=== PATIENT | male | born 1985 | race Caucasian/White ===

== ENCOUNTER 2023-09-18 12:31 | Emergency (ER) | payer OTHER, SELFPAY ==
[2023-09-18 12:34] VITALS: BP 135/80
--- NOTE | 2023-09-18 13:29 | ED.GENMED ---
History of Present Illness
General
Chief Complaint: Musculo-Skeletal Complaint
Source: patient
Time Seen by Provider: 09/18/23 13:20
Travel History
Have you had any contact with someone who has COVID-19?: No
Do you have any symptoms of coronavirus? Fever > 100 degrees, chills, cough, shortness of breath, sore throat, loss of taste or smell, muscle aches, or headache?: No
History of Present Illness
History of Present Illness:
38-year-old male with no significant past medical history presenting the emergency department for evaluation of right knee pain that he states he woke up with today after he had an accidental trip and fall last night while drinking. Patient states
he feels a cracking/popping sensation when attempting to range of motion the right knee. Patient notes that about 4 5 years ago he injured the same knee but did not have any surgery. No other injuries or concerns.
Past History
Past History
ED Past Medical History: Psychiatric (Anxiety, )
ED Past Surgical History: Orthopedic (Left bicep repair)
Social History
Tobacco: Smoker
Alcohol: Occasional
Drug: None
Personal: Single
Living: with family
Employment: Employed
Review of Systems
Review of Systems
All Other Systems: ROS reviewed and negative except as documented in HPI and ROS
Phy Exam
Physical Exam
Physical Exam:
GENERAL: Alert , in no apparent distress
EYE: conjunctiva clear
Head: Normocephalic atraumatic
NECK: Supple,
ENT: mmm.
LUNGS: no acute respiratory distress
NEUROLOGICAL: Alert and oriented
SKIN: Warm and dry, skin intact.
MUSCULOSKELETAL: Right knee: Soft tissue swelling without any joint effusion. Range of motion is somewhat limited with flexion and extension secondary to pain. Patient states pain is worse when trying to fully extend the knee. No overlying
erythema or breaks in the skin. Remainder of extremity is warm and well-perfused and neurovascularly intact.
PSYCH: Normal and appropriate interaction.
Scores
Heart Failure Risk
Heart Failure Risk Score: Not Applicable
Heart Score for Chest Pain Patients
STEMI patient?: Not applicable
Withdrawal Assessment of Alcohol
Withdrawal Assessment Completed?: Not applicable
Course
Orders/Labs/Results
Orders:
Orders
09/18/23 12:36
Knee, Right 4 or More Views [CR Knee- Right 4 Or More View*] Urgent
Comment:
Reason For Exam: fall/pain
09/18/23 13:28
Crutches-Treatment ONCE
Knee Immobilizer Right-Treatme ONCE
Vital Signs
Initial and Last Documented VS:
Initial Vital Signs
Temp Pulse Resp BP Pulse Ox
98.3 F 92 17 135/80 95
09/18/23 12:34 09/18/23 12:34 09/18/23 12:34 09/18/23 12:34 09/18/23 12:34
Last Documented Vital Signs
Temp Pulse Resp BP Pulse Ox
98.3 F 92 17 135/80 95
09/18/23 12:34 09/18/23 12:34 09/18/23 12:34 09/18/23 12:34 09/18/23 12:34
MDM/Problems Addressed
Differential Diagnosis Includes:
Contusion, ligamentous injury, meniscus injury, fracture
MDM/Problems Addressed:
38-year-old male presenting to the emergency department for evaluation of right knee pain following an accidental fall yesterday evening. X-ray was ordered from triage and ultimately shows no acute fracture.
However will place patient in a knee immobilizer with concern for potential of ligamentous injury or meniscal injury. Crutches to be used as well. NSAIDs/Tylenol as needed for pain. RICE recommendations discussed. Patient stable for discharge
home and outpatient follow-up with orthopedics as needed.
*Radiology
Radiology exam reviewed: preliminary read by ED provider (No acute fracture)
*Pulse Oximetry
Patient hypoxic: no
*Critical Care Note
Total Time (30-74mins, 75-104mins- exclusive of procedures): Not Applicable
ED Attending Note
-
Portions of this chart may have been created with voice recognition software.� Occasional wrong word or��sound alike� substitutions may have occurred due to the inherent limitations of voice recognition software.
Discharge Plan
Departure
Patient Disposition: Home (Routine Discharge)
Date of Disposition: 09/18/23
Time of Disposition: 13:29
Patient with high blood pressure during this ER visit?: No
Discharge Problem:
Right knee pain
Instructions: Knee Pain (DC)
Prescriptions:
No Action
acetaminophen [Tylenol Extra Strength] 500 mg Tablet
1,000 mg PO PRN PRN (Reason: pain)
Referrals:
Ac Oliver MD [Active] - (Orthopedist - Call for appointment)
Interventions
Interventions:
*Risk Screen - Suicide Last Done: 09/18/23 12:33
*General Assessment Last Done: 09/18/23 12:33
*Neglect/Abuse Screening Last Done: 09/18/23 12:33
ED- Fall Risk Assessment Last Done: 09/18/23 14:11
*ED COVID-19 Vaccine History Last Done: 09/18/23 12:33
*Nursing Disposition Last Done: 09/18/23 14:15
ED-Musculoskeletal Assessment Last Done: 09/18/23 14:11
Discharge Date and Time
Discharge Date/Time: 09/18/23 14:16
Print Language: MALAY
== END 2023-09-18 14:16 | disposition home or self-care (01) ==
LOC: EMR 12:31
PROVIDERS: EMERGENCY PHYSICIAN Emergency Medicine; FAMILY PHYSICIAN Internal Medicine
DX: M25.561 Pain in right knee (principal); W01.0XXA Fall on same level from slipping, tripping and stumbling without subsequent striking against object, initial encounter; F41.9 Anxiety disorder, unspecified; F17.200 Nicotine dependence, unspecified, uncomplicated
CPT/HCPCS: 99283; 73564

== ENCOUNTER → 2023-10-21 06:44 | Outpatient (REF) | payer OTHER, SELFPAY | LOC: MRI 3T 06:44 | PROVIDERS: ATTENDING PHYSICIAN Physician Assistant; FAMILY PHYSICIAN Internal Medicine | DX: M25.561 Pain in right knee (principal) | CPT/HCPCS: 73721 ==

== ENCOUNTER 2024-06-01 02:19 | Emergency (ER) | payer OTHER, SELFPAY ==
[2024-06-01 02:22] VITALS: BP 164/102
[2024-06-01 03:42] VITALS: BP 152/94
[2024-06-01 05:41] VITALS: BP 141/89
[2024-06-01 06:00] VITALS: BP 119/71
--- NOTE | 2024-06-01 06:58 | ED.GENMED ---
History of Present Illness
General
Chief Complaint: Blood Pressure Problem
Source: patient
Time Seen by Provider: 06/01/24 06:45
History of Present Illness
History of Present Illness:
39-year-old male presents to the emergency room concerned about an elevated blood pressure. Patient states he has been under a lot of stress and working a lot recently. He worked from 7 AM yesterday morning until late at night returning around
midnight. When he was trying to fall asleep he felt as if he was having an adrenaline pettit or anxiety. He took his blood pressure and noted it was elevated in the 140 systolic range. He measured it repeatedly with each measurement being higher
than the previous. This caused him to be quite upset prompting his visit to the emergency room. He denies having any chest pain. He denies any sense of rapid heart rate or palpitations. The machine that measured his blood pressure also measured
his heart rate to be in the 60s. He does not have a history of anxiety. He denies any inqi-cba-htgienl medication like cold remedies etc. He does occasionally take melatonin. He denies any recreational drug use or alcohol use. Currently he
feels back to normal.
Past History
Past History
ED Past Medical History: Psychiatric (Anxiety, )
ED Past Surgical History: Orthopedic (Left bicep repair)
Social History
Tobacco: Smoker
Alcohol: Occasional
Drug: None
Personal: Single
Living: with family
Employment: Employed
Phy Exam
Physical Exam
Physical Exam:
General: Awake, Alert, Oriented X3. No acute distress.
Vitals: unremarkable
Head: Atraumatic
Eyes: Pupils equal, EOMI
Throat: Airway intact, no exudates
Neck: Trachea midline
Lungs: Clear and equal b/l
Heart: Regular rate, no murmurs
Abd: Soft, Nontender, No pulsatile mass
Neuro: Nonfocal
Skin: Warm, dry, no rash
Extremities: pulses equal b/l, no edema
Course
Vital Signs
Initial and Last Documented VS:
Initial Vital Signs
Temp Pulse Resp BP Pulse Ox
98.2 F 84 16 164/102 99
06/01/24 02:22 06/01/24 02:22 06/01/24 02:22 06/01/24 02:22 06/01/24 02:22
Last Documented Vital Signs
Temp Pulse Resp BP Pulse Ox
98.2 F 50 18 115/77 99
06/01/24 02:22 06/01/24 07:06 06/01/24 07:06 06/01/24 07:06 06/01/24 07:06
MDM/Problems Addressed
Differential Diagnosis Includes:
Hypertension, anxiety
MDM/Problems Addressed:
Patient had elevated blood pressures at home. The more he measured his blood pressure the higher went. He admits to feeling quite anxious about the situation. Physical exam appears benign. Blood pressure is normal. There is no physical exam
findings to suggest an unstable process. Recommend follow-up with his primary care provider.
*Pulse Oximetry
Patient hypoxic: no
*Critical Care Note
Total Time (30-74mins, 75-104mins- exclusive of procedures): Not Applicable
ED Attending Note
-
Portions of this chart may have been created with voice recognition software.� Occasional wrong word or��sound alike� substitutions may have occurred due to the inherent limitations of voice recognition software.
Discharge Plan
Departure
Patient Disposition: Home (Routine Discharge)
Date of Disposition: 06/01/24
Time of Disposition: 06:59
Patient with high blood pressure during this ER visit?: Yes
Discharge Problem:
Elevated blood pressure reading
Instructions: BLOOD PRESSURE
Prescriptions:
No Action
acetaminophen [Tylenol Extra Strength] 500 mg Tablet
1,000 mg PO PRN PRN (Reason: pain)
melatonin 1 mg Tablet
1 mg PO HS PRN (Reason: insomnia)
Referrals:
Chekov,Gilles V., MD [Family Provider] -
Activity Restrictions/Additional Instructions:
Follow-up with your primary care doctor. Return for any chest pain or shortness of breath.
Interventions
Interventions:
*Risk Screen - Suicide Last Done: 06/01/24 02:22
*General Assessment Last Done: 06/01/24 05:42
*Neglect/Abuse Screening Last Done: 06/01/24 05:42
ED- Fall Risk Assessment Last Done: 06/01/24 05:47
*ED COVID-19 Vaccine History Last Done: 06/01/24 05:42
*Nursing Disposition Last Done: 06/01/24 07:06
ED- Cardiac Assessment Last Done: 06/01/24 05:47
ED- Neurological Assessment Last Done: 06/01/24 05:47
ED- Pulmonary Assessment Last Done: 06/01/24 05:47
Discharge Date and Time
Discharge Date/Time: 06/01/24 07:08
Print Language: DUTCH
[2024-06-01 07:06] VITALS: BP 115/77
== END 2024-06-01 07:08 | disposition home or self-care (01) ==
LOC: EMR 02:19
PROVIDERS: EMERGENCY PHYSICIAN Emergency Medicine; FAMILY PHYSICIAN Internal Medicine
DX: R03.0 Elevated blood-pressure reading, without diagnosis of hypertension (principal); Z56.6 Other physical and mental strain related to work; F17.200 Nicotine dependence, unspecified, uncomplicated
CPT/HCPCS: 99282

== ENCOUNTER 2024-07-07 04:36 | Emergency (ER) | payer OTHER, SELFPAY ==
[2024-07-07 04:39] VITALS: BP 163/111
[2024-07-07 06:16] VITALS: BP 144/93
[2024-07-07 07:51] LABS: % Basophils 0.5 % (0-2); % Eosinophils 0.4 % (0-6); % Immature Granulocytes 0.3 % (0-0.5); % Lymphocytes 26.3 % (20.5-51.1); % Monocytes 6.6 % (1.7-9.3); % Neutrophils 65.9 % (42.2-75.2); Absolute Monocytes 0.5 10^3/uL (0.1-0.6); Hematocrit 49.7 % (39.0-52.0); Hemoglobin 16.7 g/dL (13.0-18.0); Mean Corp Hgb Conc. 33.6 g/dL (33.0-37.0); Mean Corpuscular Hgb 30.9 pg (27.0-31.0); Mean Corpuscular Volume 91.9 fL (80.0-94.0); Nucleated Red Blood Cells % 0 % (-); Platelet Count 322 10^3/uL (130-400); Red Blood Cell Count 5.41 10^6/uL (4.70-6.10); Red Cell Dist. Width 12.4 % (11.5-14.5); White Blood Cell Count 7.5 10^3/uL (4.8-10.8)
[2024-07-07 08:02] LABS: ALT (SGPT) 22 U/L (0-50); AST (SGOT) 23 U/L (17-59); Albumin 4.7 g/dl (3.5-5.0); Alkaline Phosphatase 59 U/L (38-126); Blood Urea Nitrogen 10 mg/dl (9-20); Calcium 9.7 mg/dl (8.4-10.2); Carbon Dioxide 28 mmol/L (22-30); Chloride 106 mmol/L (98-107); Glucose 92 mg/dl (70-99); Potassium 4.9 mmol/L (3.5-5.1); Sodium 143 mmol/L (135-145); Total Bilirubin 0.6 mg/dl (0.2-1.3); Total Protein 7.6 g/dl (6.3-8.2); eGFR > 60.00
--- NOTE | 2024-07-07 08:11 | ED.GENMED ---
History of Present Illness
General
Chief Complaint: Anxiety
Source: patient and records
Exam Limitations: none
Time Seen by Provider: 07/07/24 07:19
Nursing documentation reviewed up to this point in time: agreed with
History of Present Illness
History of Present Illness:
39-year-old male with history of anxiety presents to the ER for evaluation of 'panic attack.' Patient reports that for the past month or so he has been having a few episodes where he has what he describes as a panic attack. He says that they
typically happen when he is trying to get to sleep. He says that they seem to happen when he has gone a long time without sleeping due to work. He says that he lays down and he becomes more aware of his heart rate and has mild palpitations. He
says he begins to feel anxious and becomes very fixated on his heart rate and his breathing. He says that he begins to feel panicky. He says that lately he has been checking his blood pressure during these episodes and noted that they are
elevated. He was seen in the ER last month for similar symptoms. He says that by the time of arrival here in the ER his symptoms have resolved and he now feels well. He does not have any chest pain or shortness of breath. He has not had any GI
issues. He denies any other symptoms. He has been on escitalopram for about 3 weeks. He denies any regular alcohol use but does drink socially. He does admit to regular caffeine use.
Past History
Past History
ED Past Medical History: Psychiatric (Anxiety, )
ED Past Surgical History: Orthopedic (Left bicep repair)
Social History
Tobacco: Smoker
Alcohol: Occasional
Drug: None
Personal: Single
Living: with family
Employment: Employed
Review of Systems
Review of Systems
All Other Systems: ROS reviewed and negative except as documented in HPI and ROS
Cardiac: Reports palpitations; Denies chest pain or diaphoresis
ABD/GI: Denies nausea or vomiting
: Denies flank pain
Musculoskeletal: Denies neck pain or back pain
Neurological: Denies dizzy or headache
Psychiatric: Reports anxiety
Phy Exam
Physical Exam
Physical Exam:
General: Awake, alert, oriented x3; no acute distress
Head: Normocephalic, atraumatic
Eyes: Conjunctiva normal, pupils equal round and reactive to light bilaterally
Throat: Airway intact, handling secretions
Neck: Trachea midline, supple without meningismus
Lungs: Clear to auscultation bilaterally, no wheezing, rales, rhonchi
Heart: Regular rate and rhythm, no murmurs, gallops, or rubs
Neuro: No gross deficits
Extremities: No edema in extremities, warm and well perfused
Scores
Heart Failure Risk
Heart Failure Risk Score: Not Applicable
Heart Score for Chest Pain Patients
STEMI patient?: Not applicable
Withdrawal Assessment of Alcohol
Withdrawal Assessment Completed?: Not applicable
Course
Orders/Labs/Results
Orders:
Orders
07/07/24 04:37
EKG [Electrocardiogram (*1)] Urgent
Reason for Study: Bradycardia / Tachycardia
EKG- Treatment ONCE
07/07/24 07:30
Complete Blood Count/With Diff Urgent
Comprehensive Metabolic Panel Urgent
TSH Reflex To Free T4 Urgent
07/07/24 07:30
07/07/24 07:30
Vital Signs
Initial and Last Documented VS:
Initial Vital Signs
Temp Pulse Resp BP Pulse Ox
37.1 C 100 18 163/111 99
07/07/24 04:39 07/07/24 04:39 07/07/24 04:39 07/07/24 04:39 07/07/24 04:39
Last Documented Vital Signs
Temp Pulse Resp BP Pulse Ox
37.1 C 77 18 144/93 99
07/07/24 04:39 07/07/24 06:16 07/07/24 06:16 07/07/24 06:16 07/07/24 06:16
MDM/Problems Addressed
Differential Diagnosis Includes:
Dysrhythmia, electrolyte derangement, hyperthyroidism, anxiety/panic
MDM/Problems Addressed:
39-year-old male presents for evaluation of what he describes as panic attack�he reports being fixated on heart rate and breathing when he is trying to sleep. Episodes seem to be triggered when he goes long periods without sleep. Symptoms resolved
shortly after arrival in the ER. He was initially hypertensive but normalized by my assessment. Initially tachycardic but again normalized by my assessment. He says he feels fine now. Will send off basic lab work, TSH. EKG reviewed shows sinus
tachycardia, no delta wave, no Brugada, normal QTc. Will monitor and reassess after the above.
Labs reviewed: CBC and CMP unremarkable, TSH normal. Vital signs normal patient stable on reassessment. Stable for discharge follow-up with primary as an outpatient. We did talk about potentially prescription for as needed Ativan for future
episodes but patient declined will plan to make lifestyle adjustments including prioritizing sleep and monitoring caffeine intake. All questions answered.
*Pulse Oximetry
Patient hypoxic: no
*EKG
Interpreted by ED Provider?: Yes
Heart Rate: 107
Rate: tachycardiac
Rhythm: sinus tachycardia
Irmo: normal axis
Interval: normal interval
QRS Pattern: right bundle branch block (incomplete)
Ischemia: no ischemia
*Critical Care Note
Total Time (30-74mins, 75-104mins- exclusive of procedures): Not Applicable
Data Reviewed
Review of Other/Old Records Reveals: Labs and Records
Source: patient and records
ED Attending Note
-
Portions of this chart may have been created with voice recognition software.� Occasional wrong word or��sound alike� substitutions may have occurred due to the inherent limitations of voice recognition software.
Discharge Plan
Departure
Patient Disposition: Home (Routine Discharge)
Date of Disposition: 07/07/24
Time of Disposition: 09:01
Patient with high blood pressure during this ER visit?: Yes
Discharge Problem:
Palpitations, Hypertension
Instructions: Panic Attack ED, BLOOD PRESSURE
Prescriptions:
No Action
acetaminophen [Tylenol Extra Strength] 500 mg Tablet
1,000 mg PO PRN PRN (Reason: pain)
melatonin 1 mg Tablet
1 mg PO HS PRN (Reason: insomnia)
Referrals:
Gilles Monet MD [Family Provider] - Follow up in 2-3 days
Activity Restrictions/Additional Instructions:
Thank you for visiting the Emergency Department at [facility].
1. Please schedule a follow up appointment as directed. Call first thing tomorrow morning to make an appointment.
2. If indicated, please take your medications as instructed and indicated on discharge paperwork.
3. If any of your symptoms do not improve, or persist, or become more severe within 6-12 hours, please return to the emergency department for further care.
4. Please return to the emergency department if you develop a headache, neck pain/stiffness, fever greater than 100.4F, chest pain, shortness of breath, persistent nausea, vomiting, slurred speech, difficulty walking, numbness/tingling, weakness,
signs of infection or any other symptoms that are worrisome to you.
Please call [phone] if you have any questions.
Interventions
Interventions:
*Risk Screen - Suicide Last Done: 07/07/24 04:39
*General Assessment Last Done: 07/07/24 06:18
*Neglect/Abuse Screening Last Done: 07/07/24 06:19
*ED COVID-19 Vaccine History Last Done: 07/07/24 06:18
ED-Psychological Assessment Last Done: 07/07/24 06:20
Discharge Date and Time
Print Language: CITIZEN OF [place]
[2024-07-07 08:43] LABS: TSH Reflex To Free T4 0.68 uIU/ml (0.47-4.68)
== END 2024-07-07 09:40 | disposition home or self-care (01) ==
LOC: EMR 04:36
PROVIDERS: EMERGENCY PHYSICIAN Emergency Medicine; FAMILY PHYSICIAN Internal Medicine
DX: R00.2 Palpitations (principal); I10 Essential (primary) hypertension; F17.200 Nicotine dependence, unspecified, uncomplicated; I45.10 Unspecified right bundle-branch block
CPT/HCPCS: 99284; 80053; 84443; 85025; 93005

== ENCOUNTER 2024-12-09 13:40 | Emergency (ER) | payer OTHER, SELFPAY ==
[2024-12-09 13:47] VITALS: BP 170/97
--- NOTE | 2024-12-09 14:08 | ED.GENMED ---
History of Present Illness
General
Chief Complaint: Anxiety
Time Seen by Provider: 12/09/24 14:07
Nursing documentation reviewed up to this point in time: agreed with
History of Present Illness
History of Present Illness:
39-year-old male presents to the ER for evaluation of palpitations and chest pain that started approximately 1 hour prior to arrival. Patient admits to using cocaine last night. This is only the second time he is ever used it. He does have a
history of prior panic attacks but states that the symptoms had been reasonably well-controlled without any medications recently. Anxiety and panic seem to be more situational in nature. Patient states he otherwise has been feeling well without
any cough or cold symptoms. No fevers or chills. No peripheral edema. He has no prior personal history of ACS. He does not take any prescription medications every day. He states that he had been seen in this emergency department previously for
anxiety and was referred to cardiology but has never made an appointment. Patient states that he sometimes checks his blood pressure at home and most of the time has normal blood pressure readings, although when he is feeling anxious his blood
pressure is elevated. It was elevated at home today prompting him to come to the ER. He states that the chest pain has resolved prior to my evaluation. He persists with a feeling of palpitations and anxiety
Past History
Past History
ED Past Medical History: Psychiatric (Anxiety, )
ED Past Surgical History: Orthopedic (Left bicep repair)
Social History
Tobacco: Smoker
Alcohol: Occasional
Drug: None
Personal: Single
Living: with family
Employment: Employed
Phy Exam
Physical Exam
Physical Exam:
Patient is awake, alert, anxious but in no acute distress, mucous membranes moist, conjunctiva pink, no JVD, heart regular rate and rhythm without murmurs or ectopy, lungs are clear to auscultation without wheezes rales or rhonchi, abdomen is soft
and nontender without guarding or rebound, extremities without edema, 2+ radial pulses present symmetric, 2+ DP pulses present symmetric, GCS is 15, moving easily on the stretcher without focal weakness noted
Course
Orders/Labs/Results
Orders:
Orders
12/09/24 13:43
ECG [Electrocardiogram (*1)] Urgent
Reason for Study: Shortness of Breath
EKG- Treatment ONCE
12/09/24 14:20
Lorazepam [Ativan] 1 mg PO NOW STA
12/09/24 14:22
CR Chest - 2 Views Urgent
Comment:
Reason For Exam: chest pain
12/09/24 14:34
Basic Metabolic Panel Urgent
Complete Blood Count/No Diff Urgent
Troponin I Urgent
Abnormal Lab Results
12/09/24
14:34
WBC 11.8 H 10^3/uL
(4.8-10.8)
MCH 31.6 H pg
(27.0-31.0)
BUN 7 L mg/dl
(9-20)
12/09/24 14:34
12/09/24 14:34
Mild leukocytosis. Hemoglobin normal. Kidney function preserved. Awaiting troponin
1534-troponin negative
Vital Signs
Initial and Last Documented VS:
Initial Vital Signs
Temp Pulse Resp BP Pulse Ox
98.8 F 85 18 170/97 98
12/09/24 13:47 12/09/24 13:47 12/09/24 13:47 12/09/24 13:47 12/09/24 13:47
Last Documented Vital Signs
Temp Pulse Resp BP Pulse Ox
98.8 F 85 17 170/97 98
12/09/24 13:47 12/09/24 13:47 12/09/24 14:00 12/09/24 13:47 12/09/24 14:22
MDM/Problems Addressed
Differential Diagnosis Includes:
Differential diagnosis considered but not limited to cocaine toxicity, anxiety, arrhythmia, ACS along with other etiologies considered
Chronic conditions affecting care:
Anxiety
*Radiology
Radiology exam reviewed: preliminary read by ED provider (I independently viewed and interpreted two-view chest x-ray showing clear lungs, no pneumothorax, normal cardiac silhouette)
*Pulse Oximetry
SaO2: 98
Oxygen Mode of Delivery: Room air
Patient hypoxic: no
*EKG
Interpreted by ED Provider?: Yes (I independently viewed and interpreted twelve-lead EKG showing normal sinus rhythm, rate 83, incomplete right bundle branch block, no ST elevation, this is a nonspecific EKG without evidence for acute ischemia, no
change compared to prior from 07/07/2024)
*Cable Supervisor Interpretation
Rate: normal (I independently viewed and interpreted rhythm strip showing normal sinus rhythm, incomplete right bundle branch block)
*Critical Care Note
Total Time (30-74mins, 75-104mins- exclusive of procedures): Not Applicable
Update Note
Update Note:
Patient resting comfortably, feeling much better after Ativan administration. I discussed with patient very reassuring workup in the emergency department. No evidence for ACS based on troponin. EKG reassuring. I discussed with patient long-term
benefit of discussion of anxiety with his primary care physician. I discussed with patient strict return precautions. I also discussed with patient benefit of abstaining from illicit drug use. Patient expressed understanding of discharge plan and
had no questions prior to the department
ED Attending Note
-
Portions of this chart may have been created with voice recognition software.� Occasional wrong word or��sound alike� substitutions may have occurred due to the inherent limitations of voice recognition software.
Discharge Plan
Departure
Patient Disposition: Home (Routine Discharge)
Date of Disposition: 12/09/24
Time of Disposition: 15:35
Patient with high blood pressure during this ER visit?: Yes
Discharge Problem:
Cocaine use, Chest pain, Anxiety
Instructions: Anxiety, Adult (DC), BLOOD PRESSURE
Prescriptions:
No Action
acetaminophen [Tylenol Extra Strength] 500 mg Tablet
1,000 mg PO PRN PRN (Reason: pain)
melatonin 1 mg Tablet
1 mg PO HS PRN (Reason: insomnia)
Referrals:
Gilles Monet MD [Family Provider, Internal Medicine]
Activity Restrictions/Additional Instructions:
Please avoid using cocaine in the future. Please contact your primary care physician tomorrow to schedule appointment for recheck of your blood pressure and to have assistance in treating your baseline anxiety. Return to the ER for any concerns
Interventions
Interventions:
*Risk Screen - Suicide Last Done: 12/09/24 13:51
*General Assessment Last Done: 12/09/24 13:51
*Neglect/Abuse Screening Last Done: 12/09/24 13:51
*Nursing Disposition Last Done: 12/09/24 16:13
ED-Psychological Assessment Last Done: 12/09/24 15:00
Discharge Date and Time
Discharge Date/Time: 12/09/24 16:14
Print Language: [id number]
[2024-12-09] MEDS: ATIVAN 1 MG PO (14:34)
[2024-12-09 14:39] VITALS: BMI 24.8
[2024-12-09 14:45] LABS: Hematocrit 46.0 % (39.0-52.0); Hemoglobin 16.1 g/dL (13.0-18.0); Mean Corp Hgb Conc. 35.0 g/dL (33.0-37.0); Mean Corpuscular Volume 90.2 fL (80.0-94.0); Platelet Count 325 10^3/uL (130-400); Red Cell Dist. Width 12.7 % (11.5-14.5)
[2024-12-09 15:09] LABS: Blood Urea Nitrogen 7 mg/dl (9-20); Calcium 9.3 mg/dl (8.4-10.2); Carbon Dioxide 28 mmol/L (22-30); Chloride 106 mmol/L (98-107); Estimated Creatinine Clearance > 125 ml/min; Glucose 94 mg/dl (70-99); Potassium 4.0 mmol/L (3.5-5.1); Sodium 139 mmol/L (135-145); eGFR > 60.00
[2024-12-09 15:22] LABS: Troponin I < 0.012 ng/ml
== END 2024-12-09 16:14 | disposition home or self-care (01) ==
LOC: EMR 13:40
PROVIDERS: EMERGENCY PHYSICIAN Emergency Medicine; FAMILY PHYSICIAN Internal Medicine
DX: F14.90 Cocaine use, unspecified, uncomplicated (principal); R07.9 Chest pain, unspecified; F41.9 Anxiety disorder, unspecified; I45.10 Unspecified right bundle-branch block; F17.200 Nicotine dependence, unspecified, uncomplicated
CPT/HCPCS: 99285; 71046; 80048; 84484; 85027; 93005